=== PATIENT | female | born 1975 | race Two or more races ===

== ENCOUNTER 2019-11-07 05:45 | Day surgery (SDC) | payer OTHER | END 2019-11-07 09:32 | disposition home or self-care (01) | LOC: AMB-ENDOS 05:45 → ADM 13:00 → AMB-ENDOS 13:00 | PROVIDERS: ATTEND Surgery | DX: K29.60 Other gastritis without bleeding (principal); K44.9 Diaphragmatic hernia without obstruction or gangrene ==

== ENCOUNTER → 2020-11-04 08:00 | Outpatient (CLI) | payer OTHER ==
[~2020-11-04 08:00] MED LIST: CIPRO500 MG PO; COZAAR50 MG PO; POLY119PG PO; SURFAK240 M1 PO; ULTRACET PO
== END | disposition home or self-care (01) ==
LOC: LAB 08:00 → ADM 08:00 → EDSTATUS 11-11 08:00 → CIR.AMB 11-11 08:00
PROVIDERS: ATTEND Surgery
DX: K80.10 Calculus of gallbladder with chronic cholecystitis without obstruction (principal); Z03.818 Encounter for observation for suspected exposure to other biological agents ruled out; I10 Essential (primary) hypertension

== ENCOUNTER → 2020-12-16 | Day surgery (SDC) | payer OTHER | END | disposition home or self-care (01) | LOC: ADM 12-14 11:00 → CIR.AMB 08:25 | PROVIDERS: ATTEND Surgery | DX: K80.12 Calculus of gallbladder with acute and chronic cholecystitis without obstruction (principal); K66.0 Peritoneal adhesions (postprocedural) (postinfection); Z20.822 Contact with and (suspected) exposure to COVID-19 ==